=== PATIENT | male | born 1955 | race Caucasian/White ===

== ENCOUNTER 2023-06-21 13:07 | Outpatient (OUT) | payer MEDICARE, SELFPAY ==
--- NOTE | 2023-06-21 13:19 | ECG_ITS ---
[facility] Test Date: 2023-06-21 Pat Name: TREVON PORRAS Department: Room: - Gender: Male Shop Clerk: : 1955 Requested By: PEDRO SHARMA Order Number: [id number] Reading MD: MARIO TATUM Measurements Intervals [place] Rate: 83 P: 62 SC: 150 QRS: 63 QRSD: 89 T: 50 QT: 356 QTc: 420 Interpretive Statements SINUS RHYTHM No previous ECG available for comparison Electronically Signed On 06-22-2023 7:03:40 EDT by MARIO TATUM
[2023-06-21 14:00] LABS: Basophils Percent Auto 0.5 % (0.2-2.0); Eosinophils Absolute Auto 0.1 10^3/uL (0.0-0.7); Eosinophils Percent Auto 1.5 % (0.9-7.0); Hematocrit 40.2 % (42.0-54.0); Hemoglobin 13.5 g/dL (14.0-18.0); Immature Granulocytes Abs Auto 0.01 10^3/uL (0.00-0.03); Immature Granulocytes Pct Auto 0.2 % (0.0-0.5); Lymphocytes Absolute Auto 1.3 10^3/uL (1.2-3.8); Lymphocytes Percent Auto 24.3 % (20.5-60.0); Mean Corpuscular HGB Conc 33.6 g/dL (29.9-35.2); Mean Corpuscular Hemoglobin 30.4 pg (25.9-34.0); Mean Corpuscular Volume 90.5 fL (80.0-94.0); Mean Platelet Volume 10.1 fL (9.5-13.5); Monocytes Absolute Auto 0.5 10^3/uL (0.3-0.8); Monocytes Percent Auto 9.5 % (1.7-12.0); Neutrophils Absolute Auto 3.5 10^3/uL (1.4-6.5); Platelet Count 215 10^3/uL (150-450); Red Blood Count 4.44 10^6/uL (4.70-6.10); Red Cell Distribution Width 13.2 % (11.0-15.0); White Blood Count 5.5 10^3/uL (4.0-11.0)
--- NOTE | 2023-06-21 14:03 | PM.PRESUREVA ---
History of Present Illness History of Present Illness Chief complaint: BPH with obstruction, bladder stone Narrative: Patient presented for preadmission testing. The patient reports frequent urination, nocturia, urinary retention, and weak urine stream. The patient denies gross hematuria, dysuria, abdominal pain, nausea, vomiting, fever, or any other complaints. Review of Systems ROS Narrative REVIEW OF SYSTEMS: Negative except as stated in HPI, ten or more systems reviewed. Constitutional: No fever , chills, weakness ENT: No sore throat or epistaxis Cardiovascular: No edema, chest pain, palpitations, or activity intolerance Respiratory: No shortness of breath, cough, or wheezing Musculoskeletal: No joint pain or swelling Gastrointestinal: No abdominal pain, constipation, diarrhea, or vomiting Genitourinary: No dysuria or hematuria Neurological: No numbness, tingling, weakness, or headache Psychiatric: No mood changes [facility] Medical History (Updated 06/21/23 @ 14:04 by Dori Garcia NP) Asthma ?J45.909 - Unspecified asthma, uncomplicated (ICD-10) Benign prostatic hyperplasia with urinary obstruction and other lower urinary tract symptoms ?N40.1 - Benign prostatic hyperplasia with lower urinary tract symptoms (ICD-10) ?N13.8 - Other obstructive and reflux uropathy (ICD-10) Bladder stone ?N21.0 - Calculus in bladder (ICD-10) BPH (benign prostatic hyperplasia) ?N40.0 - Benign prostatic hyperplasia without lower urinary tract symptoms (ICD-10) GERD (gastroesophageal reflux disease) ?K21.9 - Gastro-esophageal reflux disease without esophagitis (ICD-10) Hemorrhage ?R58 - Hemorrhage, not elsewhere classified (ICD-10) High cholesterol ?E78.00 - Pure hypercholesterolemia, unspecified (ICD-10) Hypertension ?I10 - Essential (primary) hypertension (ICD-10) Kidney stones ?N20.0 - Calculus of kidney (ICD-10) Narcolepsy ?G47.419 - Narcolepsy without cataplexy (ICD-10) Restless leg ?G25.81 - Restless legs syndrome (ICD-10) Surgical History (Updated 06/21/23 @ 13:39 by Dori Garcia NP) History of tonsillectomy ?Z90.89 - Acquired absence of other organs (ICD-10) S/P cystoscopy ?Z98.890 - Other specified postprocedural states (ICD-10) Family History (Updated 06/21/23 @ 13:39 by Dori Garcia NP) Other Family history of aneurysm Family history of hypertension Family history of leukemia Social History (Updated 06/21/23 @ 13:33 by Dori Garcia NP) Within the past year, how often did you have a drink containing alcohol: monthly or less Smoking status: Never smoker Highest level of school completed/degree received: high school graduate Meds Home Medications and Allergies Home Medications Medication Instructions Recorded Confirmed Type amlodipine 5 mg tablet 5 mg PO DAILY 06/21/23 06/21/23 History dextroamphetamine-amphetamine 20 40 mg PO DAILY 06/21/23 06/21/23 History mg tablet dutasteride 0.5 mg capsule 0.5 mg PO DAILY 06/21/23 06/21/23 History finasteride 5 mg tablet mg 06/21/23 History gabapentin 300 mg capsule 600 mg PO QPM 06/21/23 06/21/23 History losartan 100 mg tablet 100 mg PO QDAY 06/21/23 06/21/23 History rosuvastatin 10 mg tablet 10 mg PO QDAY 06/21/23 06/21/23 History tamsulosin 0.4 mg capsule 0.4 mg PO Q24H 06/21/23 06/21/23 History Allergies Allergy/AdvReac Type Severity Reaction Status Date / Time tetracycline Allergy Unknown Verified 06/21/23 13:31 Exam Narrative Exam Narrative: Constitutional: Awake, alert, comfortable, well-appearing, nontoxic, interactive, vital signs as charted Head: Normocephalic, atraumatic Neck: Supple, normal appearance, normal range of motion, no meningeal signs, no lymphadenopathy Respiratory: No respiratory distress, breath sounds clear Cardiovascular: Regular rate and rhythm, strong and regular heart tones Abdomen: Nontender, normal bowel sounds, soft, no CVA tenderness Musculoskeletal: Normal gait, no swelling or edema Skin: No rashes or induration, no lesions, only visible skin inspected Neuro: No neurological deficits, normal sensation Psychiatric: Oriented ?3, normal affect Assessment and Plan Assessment and Plan (1) Benign prostatic hyperplasia with urinary obstruction and other lower urinary tract symptoms: (2) Bladder stone: Plan Cystoscopy, transurethral resection of the prostate, Litholapaxy scheduled with Dr. Velasco 06/24/23.
[2023-06-21 14:17] LABS: INR 0.95; Partial Thromboplastin Time 31.4 sec (22.3-36.2); Prothrombin Time 10.1 sec (9.0-11.6)
[2023-06-21 14:41] LABS: Anion Gap 11.2; Calcium 8.9 mg/dL (8.5-10.1); Carbon Dioxide 29.6 mmol/L (21.0-32.0); Chloride 104 mmol/L (98-107); Estimated GFR (African America >60 (>=60); Estimated GFR (Non-African Ame >60 (>=60); Glucose 101 mg/dL (74-106); Potassium 3.8 mmol/L (3.5-5.1); Sodium 141 mmol/L (136-145)
== END 2023-06-21 13:08 | disposition home or self-care (01) ==
LOC: PST 13:12
PROVIDERS: Visit Provider Urology
DX: Z01.810 Encounter for preprocedural cardiovascular examination (principal); Z01.812 Encounter for preprocedural laboratory examination; Z79.01 Long term (current) use of anticoagulants; I10 Essential (primary) hypertension; N40.1 Benign prostatic hyperplasia with lower urinary tract symptoms; R31.9 Hematuria, unspecified; E78.5 Hyperlipidemia, unspecified; N21.0 Calculus in bladder
CPT/HCPCS: 80048; 85025; 85610; 85730; 93005; G0463

== ENCOUNTER 2023-06-30 17:04 | Day surgery (SDC) | payer MEDICARE, SELFPAY ==
[2023-06-21 13:48] VITALS: BP 107/64; PULSE 100; RESP 18; TEMP 36.3; O2SAT 96; BMI 24.5
[2023-06-30] VITALS (14 sets, daily range): BP systolic 98–114; BP diastolic 57–67; PULSE 61–86; RESP 11–112; TEMP 36.2–36.8; O2SAT 93–100; BMI 23.8
[2023-06-30] MEDS: LACTATED RINGER'S SOLUTION 1,000 ML 50 ML IV ×2 (13:07→16:26)
[2023-06-30] MEDS: LEVOFLOXACIN IN DEXTROSE 5 % 500 MG/100 ML PIGGYBACK 100 MG IV (14:47)
--- NOTE | 2023-06-30 16:37 | PM.URSON ---
Urology Surgery Operative Note Operative Note Procedure Date: 06/30/23 Time Out Performed: yes Pre-op Diagnosis: #1. Benign prostatic hypertrophy with L UTS refractory to medications. #2. Bladder calculi Post-op Diagnosis: same as pre-op Procedures performed: #1. Cystoscopy. #2. Cystolitholapaxy of 3 bladder calculi. #3. Transurethral resection of the prostate.#4. Urethral dilation with Allred sounds to 28 Naur[place]. [facility] Primary Surgeon: Noman Velasco Complications: none Estimated blood loss (mL): 5 Findings: #1.multiple bladder calculi. #2.bulbar urethral stricture. #3. Urethral meatal stenosis Specimens: #1. Bladder calculi. #2. Prostate chips. Drains: 22 N[place]uan three-way coud? Clayton catheter to CBI Indications for Procedures: gentleman has benign prostatic hypertrophy with L UTS that is refractory to maximum meds including Flomax and dutasteride. Also, he was found to have bladder calculi. He now presents for cystolitholapaxy and transurethral resection of the prostate. He has signed an informed consent for these procedures after risks were explained to him in very great detail. Some of these risks include bleeding, infection, anesthesia, retrograde ejaculation, urinary incontinence both temporary and permanent, erecctile dysfunction and possible need for other procedures just to name a few. Detailed description of Procedure: The patient was brought to the operating room and placed on the operating room table in the supine position. SCDs were placed on the lower extremities and turned on and functioning during the entire case. Timeout was done by all parties in the room. We all agreed upon the patient's identification and the planned procedures for this patient. Genn. anesthesia was then administered. The patient was then repositioned into the modified dorsal lithotomy position. All pressure points were satisfactorily padded. Genitalia were sterilely prepped and draped in usual fashion.I started by attempting to pass a 26 [place] pyeloscope per urethra but was unable due to urethral stenosis.I then used [place] sounds and dilated his meatus up to 28 [place]uan. I then was able to pass the scope but when I got to the bulb of the urethra I could not get it through due to a mild stricture. I then passed a Glidewire through the scope into the bladder and removed the scope. I then dilated did bulb with Allred sounds up to 28 [place]. I then was able to pass the scope into the bladder. Then passed the shock pulse device through the scope and made contact with the 1st stone and began doing lithotripsy. All of the stones were cracked up and aspirated. No pieces were left behind. This scope was then removed. I then passed a 26 [place] Olympus resectoscope per urethra and into the bladder. Bipolar loop electrode was used. The ureteral orifices were marked. I then resected from the bladder neck to the veru posteriorly. The left lateral lobe was then taken down as was the right and the anterior tissue. The bladder neck was opened up at the 5 and 7:00 positions. The apex was then opened up. The resection bed was coagulated with the loop electrode. The QuadWrangle evacuator was used to get the chips out of the bladder and these were sent for permanent sections. Upon completion, with the scope at the apex the bladder neck and prostatic urethra were wide open. There was no bleeding remaining. There were no chips in the bladder. The scope was then removed. I then passed a 22 Nauruan three-way coud? Clayton in the bladder. 30 mL of fluid was placed in the balloon. It was manually irrigated with the Belkys syringe. It was taped to traction and CBI was started. It irrigated clear. The anesthetic was then reversed. He was then transferred to a [place] [facility] bed and wheeled to PACU in stable condition.
[2023-06-30] MEDS: SOLIFENACIN SUCCINATE 10 MG TABLET PO (16:50)
[2023-06-30] MEDS: 0.9 % SODIUM CHLORIDE 1,000 ML 80 ML IV (17:34)
[2023-06-30] MEDS: SODIUM CHLORIDE IRRIG SOLUTION 3,000 ML 3000 ML IRR ×3 (17:34→20:03)
[2023-06-30] MEDS: CEFAZOLIN SODIUM/DEXTROSE,ISO 1 GM/50 ML IV.SOLN IV ×2 (18:09→23:09)
[2023-06-30] MEDS: ATORVASTATIN CALCIUM 40 MG TABLET PO (21:08)
[2023-06-30] MEDS: GABAPENTIN 300 MG CAPSULE 600 MG PO (21:08)
[2023-07-01 02:00] VITALS: BP 103/62; PULSE 92; RESP 20; TEMP 36.7; O2SAT 92
[2023-07-01 05:02] VITALS: BP 115/63; PULSE 102; RESP 18; TEMP 36.8; O2SAT 93
[2023-07-01] MEDS: HYDROCODONE/ACET 5-325 MG TABLET 1 TAB PO (05:19)
[2023-07-01] MEDS: 0.9 % SODIUM CHLORIDE 1,000 ML 80 ML IV (05:59)
[2023-07-01] MEDS: SOLIFENACIN SUCCINATE 10 MG TABLET PO (09:17)
[2023-07-08 16:09] LABS: Calcium Oxalate Dihydrate 70 % (.); Calcium Oxalate Monohydrate 25 % (.); Calcium phosphate (hydroxyl) 5 % (.); Size 4x4 mm (.)
== END 2023-07-01 10:36 | disposition home or self-care (01) ==
LOC: SURGOUT 17:07 → MS 17:10
PROVIDERS: Visit Provider Urology
PROC: (CPT 52317; principal; 2023-06-30 14:20)
DX: N40.1 Benign prostatic hyperplasia with lower urinary tract symptoms (principal); N21.0 Calculus in bladder; E78.5 Hyperlipidemia, unspecified; I10 Essential (primary) hypertension; Z79.01 Long term (current) use of anticoagulants; J45.909 Unspecified asthma, uncomplicated; K21.9 Gastro-esophageal reflux disease without esophagitis; E78.00 Pure hypercholesterolemia, unspecified; G47.419 Narcolepsy without cataplexy; G25.81 Restless legs syndrome; R39.14 Feeling of incomplete bladder emptying; R33.8 Other retention of urine; R39.12 Poor urinary stream; R35.0 Frequency of micturition; R35.1 Nocturia; R31.21 Asymptomatic microscopic hematuria; Z79.82 Long term (current) use of aspirin; Z79.899 Other long term (current) drug therapy
CPT/HCPCS: 52317; 52601; 36415; 82365; 88305; 99999; J2704